=== PATIENT | female | born 1955 | race African-American/Black ===

== ENCOUNTER 2019-04-24 00:24 | Emergency (ER) | payer OTHER ==
[2019-04-24 00:50] VITALS: BP 140/87; PULSE 102; TEMP 98.3; BMI 28.5
== END 2019-04-24 02:52 | disposition left against medical advice (07) ==
LOC: JER 00:24
DX: Z53.21 Procedure and treatment not carried out due to patient leaving prior to being seen by health care provider (principal)
CPT/HCPCS: 99281-25